=== PATIENT | female | born 1975 | race Caucasian/White ===

== ENCOUNTER 2017-09-22 00:11 | Emergency (ER) | payer BC ==
[~2017-09-22] VITALS: Ht 175.3 cm; Wt 101.8 kg
[2017-09-22] MEDS ORDERED: ADDE25CA PO (00:23)
[2017-09-22] MEDS ORDERED: SERT50TA PO (00:23)
[2017-09-22] MEDS ORDERED: CLAR1TAB2 PO (00:23)
[2017-09-22] MEDS ORDERED: CLAR10CA3 PO (00:23)
[2017-09-22] MEDS ORDERED: OXCA300T PO (00:23)
[2017-09-22] MEDS ORDERED: predniSONE 20 MG TAB PO ONE (00:45)
[2017-09-22] MEDS ORDERED: ALBUTEROL SULFATE 2.5 MG/0.5 ML INH NEB SOLN NEB ONE (00:45)
[2017-09-22] MEDS ORDERED: PRED20TA PO (00:47)
[2017-09-22] MEDS ORDERED: VIST25CA PO (00:47)
[2017-09-22 01:14] VITALS: BP 174/94
[2017-09-22] MEDS ORDERED: hydrOXYzine 25 MG TAB PO ONE (01:15)
== END 2017-09-22 01:18 | disposition home or self-care (01) ==
LOC: M ED 00:11
DX: R05 Cough (principal); J45.909 Unspecified asthma, uncomplicated; J30.2 Other seasonal allergic rhinitis; F34.89 Other specified persistent mood disorders; Z79.899 Other long term (current) drug therapy